=== PATIENT | male | born 1965 | race Caucasian/White ===

== ENCOUNTER 2017-10-11 16:06 | Observation (INO) | payer SELFPAY ==
[~2017-10-11 16:06] MED LIST: LORazepam 2 MG/ML MDV IVPUSH ONE; LORazepam 2 MG/ML MDV ONE
--- NOTE | 2017-10-11 16:23 | EDM.PDOC ---
ED HPI GENERAL MEDICAL PROBLEM - General Stated Complaint: CHEST PAIN Time Seen by Provider: 10/11/17 16:15 Source of Information: Reports: Patient History Limitations: Reports: No Limitations - History of Present Illness INITIAL COMMENTS - FREE TEXT/NARRATIVE: Pt is a 52 year old male who is here in the emergency room with complaints of chest pain for past 1 hr now. Pt claims his pain was 2-3/10. Radiates into left arm. No nausea of vomiting. No incontinence of stool or urine. No diaphoresis. 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 Pt did have MT 1 wk ago and he did have coronary Angiogram done in [place], [place] 1 wk ago. He did not have any stent placement, but was medically managed.he was discharge from the hospital in [place] and he and his girl friend are driving though the town here when this happened. Onset: Today Onset Date: 10/11/17 Onset Time: 15:00 Duration: Getting Worse Location: Reports: Chest Quality: Reports: Ache Severity: Mild Improves with: Reports: None Worsens with: Reports: None Associated Symptoms: Denies: Confusion, Chest Pain, Cough, Diaphoresis, Fever/ Chills, Headaches, Loss of Appetite, Nausea/Vomiting, Rash, Seizure, Shortness of Breath, Weakness ED ROS GENERAL - Review of Systems Review Of Systems: See Below Constitutional: Denies: Fever, Chills, Malaise, Weakness HEENT: Denies: Rhinitis, Throat Pain, Throat Swelling Respiratory: Denies: Shortness of Breath, Wheezing, Pleuritic Chest Pain, Cough , Sputum Cardiovascular: Reports: Chest Pain. Denies: Lightheadedness Endocrine: Denies: Fatigue GI/Abdominal: Denies: Abdominal Pain, Constipation, Diarrhea, Nausea, Vomiting : Denies: Dysuria, Flank Pain, Frequency, Urgency, Urinary Retention Musculoskeletal: Denies: Joint Pain, Joint Swelling Skin: Denies: Jaundice, Pruritis, Rash Neurological: Denies: Confusion, Dizziness, Headache Psychiatric: Reports: Anxiety. Denies: Agitation, Confusion, Cravings, Depression ED EXAM, GENERAL - Physical Exam Exam: See Below Exam Limited By: No Limitations General Appearance: Alert, WD/WN, No Apparent Distress, Anxious (very anxious, wants his girl friend on his side.) Eye Exam: Bilateral Eye: EOMI, PERRL Ears: Normal External Exam, Normal Canal, Hearing Grossly Normal, Normal TMs Ear Exam: Bilateral Ear: TM normal Nose: Normal Inspection, Normal Mucosa, No Blood Throat/Mouth: Normal Inspection, Normal Lips, Normal Teeth, Normal Gums, Normal Oropharynx, Normal Voice, No Airway Compromise Head: Atraumatic, Normocephalic Neck: Normal Inspection, Supple, Non-Tender, Full Range of Motion Respiratory/Chest: No Respiratory Distress, Lungs Clear, Normal Breath Sounds, No Accessory Muscle Use, Chest Non-Tender Cardiovascular: Normal Peripheral Pulses, Regular Rate, Rhythm, No Edema, No Gallop, No JVD, No Murmur, No Rub GI/Abdominal: Normal Bowel Sounds, Soft, Non-Tender, No Organomegaly, No Distention, No Abnormal Bruit, No Mass Extremities: Normal Inspection, Normal Range of Motion, Non-Tender, Normal Capillary Refill, No Pedal Edema Neurological: Alert, Oriented, CN II-XII Intact, Normal Cognition, Normal Gait, Normal Reflexes, No Motor/Sensory Deficits Psychiatric: Anxious Skin Exam: Warm, Intact EKG INTERPRETATION EKG Date: 10/11/17 Time: 16:00 Rhythm: NSR [place]: Normal P-Wave: Present QRS: Normal ST-T: Normal QT: Normal EKG Interpretation Comments: occasional PVCs Course - Vital Signs Text/Narrative:: Pt has recent cardiac history. He has had chest pain for more than and hour and rates it at 2-3/10 over the precardium. He is very anxious. he did get a EKG and his EKG is in NSR with normal rate. At this point he did receive 1 mg of Ativan IV. Which did help with his anxiety. His rate heart rate settled down into 70s and his blood pressure did improve to 130/80mmhg. His Chest xray appear normal other than elevated right hemidiaphragm. His CBC, CMP, PT and PTT are normal. His troponin is negative. Pt reassured, he has no chest discomfort and feels beter now. My only concern is that recent history of MT. I did get record from [facility] , [place]. His troponin was o.o7 and did have angiogram without stenting. He is on medical management. Plan is to admit patient for observation. Place him on cardiac monitoring.Will continue his medication and repeat second set of troponins in 8 hrs around 9 PM. If his second set of troponin is negative will plan of discharge. - Orders/Labs/Meds Orders: Active Orders 24 hr Category Date Time Status EKG Documentation Completion [RC] ASDIRECTED Care 10/11/17 16:17 Active Chest 1V Frontal [CR] Stat Exams 10/11/17 16:17 Taken Labs: Laboratory Tests 10/11/17 10/11/17 10/11/17 Range/Units 16:00 16:00 16:05 WBC 13.3 H (4.0-11.0) K/uL RBC 4.80 (4.50-6.50) M/uL Hgb 14.5 (13.0-18.0) g/dL Hct 41.7 (40.0-54.0) % MCV 87 (76-96) fL MCH 30.2 (27.0-32.0) pg MCHC 34.8 (31.0-35.0) g/dL RDW 13.8 (11.0-16.0) % Plt Count 278 (150-400) K/uL MPV 9.4 (6.0-10.0) fL Neut % (Auto) 47.3 (45.0-70.0) % Lymph % (Auto) 43.3 H (20.0-40.0) % [place] % (Auto) 8.1 (3.0-10.0) % Eos % (Auto) 1.1 (1.0-5.0) % Baso % (Auto) 0.2 (0.0-0.5) % Neut # (Auto) 6.30 (2.00-7.50) K/uL Lymph # (Auto) 5.75 H (1.50-4.00) K/uL [place] # (Auto) 1.07 H (0.20-0.80) K/uL Eos # (Auto) 0.14 (0.04-0.40) K/uL Baso # (Auto) 0.03 (0.02-0.10) K/uL PT 9.5 (9.0-11.5) sec INR 1.0 (1.0-3.5) APTT 24.7 L (27.0-35.0) SECONDS Sodium 142 (136-145) mmol/L Potassium 3.3 L (3.5-5.1) mmol/L Chloride 103 (98-107) mmol/L Carbon Dioxide 26.3 (21.0-32.0) mmol/L Anion Gap 16.0 H (5.0-15.0) mmol/L BUN 15 (8-26) mg/dL Creatinine 1.16 (0.70-1.30) mg/dL Est Cr Clr Drug Dosing TNP Estimated GFR (MDRD) > 60 (>60) MLS/MIN BUN/Creatinine Ratio 12.9 (6-25) Glucose 112 H (74-100) mg/dL Calcium 9.0 (8.5-10.1) mg/dL Total Bilirubin 0.2 (0.0-1.0) mg/dL AST 57 H (15-37) U/L ALT 119 H (12-78) U/L Alkaline Phosphatase 98 (46-116) U/L Troponin I < 0.017 (0.000-0.060) ng/mL Total Protein 7.9 (6.4-8.2) g/dL Albumin 4.1 (3.4-5.0) g/dL Globulin 3.8 (2.2-4.2) g/dL Albumin/Globulin Ratio 1.1 (0.8-2.0) Departure - Departure Time of Disposition: 18:30 Disposition: Refer to Observation Condition: Fair Clinical Impression: Chest pain - Discharge Information - Problem List & Annotations (1) Chest pain SNOMED Code(s): 96120566 Code(s): R07.9 - CHEST PAIN, UNSPECIFIED Status: Acute Current Visit: Yes - Problem List Review Problem List Initiated/Reviewed/Updated: Yes - My Orders Last 24 Hours: My Active Orders 10/11/17 16:17 EKG Documentation Completion [RC] ASDIRECTED Chest 1V Frontal [CR] Stat - Assessment/Plan Admission H&P: Please use this note as an admission H&P Last 24 Hours: My Active Orders 10/11/17 16:17 EKG Documentation Completion [RC] ASDIRECTED Chest 1V Frontal [CR] Stat Assessment:: Chest Pain Plan: Pt has recent cardiac history. He has had chest pain for more than and hour and rates it at 2-3/10 over the precardium. He is very anxious. he did get a EKG and his EKG is in NSR with normal rate. At this point he did receive 1 mg of Ativan IV. Which did help with his anxiety. His rate heart rate settled down into 70s and his blood pressure did improve to 130/80mmhg. His Chest xray appear normal other than elevated right hemidiaphragm. His CBC, CMP, PT and PTT are normal. His troponin is negative. Pt reassured, he has no chest discomfort and feels beter now. My only concern is that recent history of MT. I did get record from [facility] , [place]. His troponin was o.o7 and did have angiogram without stenting. He is on medical management. Plan is to admit patient for observation. Place him on cardiac monitoring.Will continue his medication and repeat second set of troponins in 8 hrs around 9 PM. If his second set of troponin is negative will plan of discharge.
[2017-10-11] MEDS ORDERED: Nitroglycerin 0.4 MG Tab.SL SL PRN (17:34)
[2017-10-11] MEDS ORDERED: Omeprazole 20 MG Cap.CR PO SCH (17:45)
[2017-10-11] MEDS ORDERED: atorvaSTATin 40 MG Tab PO SCH (20:00)
--- NOTE | 2017-10-11 21:34 | PCM.DCSUM1 ---
Discharge Summary - Hospital Course Free Text/Narrative:: Pt presented to emergency room today afternoon with chest pain which he rated at 2-3/10. His chest pain did improve with Ativan 1mg IV. Pt was very anxious. His first set of troponin was negative. An his vitals were stable. He recently had MN on 09/28/17 and was admitted at [place], [place]. Hence patient as admitted for repeat troponin considering his history of chest pain. Pt was placed on monitor and O2 at 2 litres. He has remained asymptomatic all through the ER monitoring. His second set of cardiac enzymes are negative. Pt does not have any more chest pain. Pt does appear to have anxiety and fear of MN reoccurring. he does say he feels anxious on and off since his MN. Hence i have reassured patient, that his cardiac workup today was normal. 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 Also I have advised patient to stay on his present medication regime. Establish Primary care where ever he is living and also make yearly check up through [facility]. Pt is stable and has been discharge today. Brief History: Presented to emergency room with chest pain. KIndly see H&P - Discharge Data Discharge Date: 10/11/17 Discharge Disposition: Home, Self-Care 01 Condition: Good - Discharge Diagnosis/Problem(s) (1) Chest pain SNOMED Code(s): 89253012 ICD Code: R07.9 - CHEST PAIN, UNSPECIFIED Status: Acute Current Visit: Yes - Patient Instructions Diet: Heart Healthy Diet Fluid Restriction: 1500 mL Activity: As Tolerated Driving: May Drive Today Showering/Bathing: May Shower - Discharge Plan Home Medications: Home Meds Amitriptyline [Elavil] 2.5 mg PO DAILY 10/11/17 [History] Aspirin [Ecotrin] 325 mg PO DAILY 10/11/17 [History] Clopidogrel [Plavix] 75 mg PO DAILY 10/11/17 [History] Nitroglycerin [Nitrostat] 0.4 mg SL ASDIRECTED PRN 10/11/17 [History] amLODIPine [Norvasc] 2.5 mg PO DAILY 10/11/17 [History] atorvaSTATin Calcium [Atorvastatin Calcium] 40 mg PO BEDTIME 10/11/17 [History] Patient Handouts: Nonspecific Chest Pain Forms: ED Department Discharge Referrals: PCP,None [Primary Care Provider] - - Discharge Summary/Plan Comment DC Time >30 min.: Yes Discharge Summary/Plan Comment: I have advised patient to stay on his present medication regime. Establish Primary care where ever he is living and also make yearly check up through [employer]. Started lexapro 10mg daily for pos MN anxiety. - General Info Functional Status: Reports: Pain Controlled, Tolerating Diet, Ambulating, Urinating - Review of Systems General: Denies: Fever, Weakness HEENT: Denies: Headaches, Sinus Congestion, Sore Throat Pulmonary: Denies: Shortness of Breath, Pleuritic Chest Pain, Cough, Sputum, Hemoptysis Cardiovascular: Denies: Chest Pain, Lightheadedness Gastrointestinal: Denies: Abdominal Pain, Nausea, Vomiting Genitourinary: Denies: Urgency, Flank Pain Musculoskeletal: Denies: Joint Pain, Joint Swelling Skin: Denies: Pruritis, Rash Neurological: Denies: Confusion, Dizziness, Headache Psychiatric: Reports: Anxiety - Patient Data Vitals - Most Recent: Last Vital Signs Temp 98.7 F 10/11/17 19:00 Pulse 63 10/11/17 19:00 Resp 16 10/11/17 19:00 BP 109/73 10/11/17 19:00 Pulse Ox 98 10/11/17 19:00 Weight - Most Recent: 118.388 kg I&O - Last 24 hours: Intake & Output 10/11/17 10/11/17 10/11/17 06:59 14:59 22:59 Intake Total 800 Balance 800 Lab Results - Last 24 hrs: Laboratory Results - last 24 hr 10/11/17 Range/Units 20:45 Troponin I < 0.017 (0.000-0.060) ng/mL Med Orders - Current: Current Medications Amitriptyline HCl (Elavil) 2.5 mg PO DAILY [facility] Amlodipine Besylate (Norvasc) 2.5 mg PO DAILY [facility] Aspirin (Ecotrin) 325 mg PO DAILY [facility] Atorvastatin Calcium (Lipitor) 40 mg PO BEDTIME [facility] Last Admin: 10/11/17 20:31 Dose: 40 mg Clopidogrel Bisulfate (Plavix) 75 mg PO DAILY [facility] Nitroglycerin (Nitrostat) 0.4 mg SL ASDIRECTED PRN PRN Reason: Pain Omeprazole (Omeprazole) 20 mg PO DAILY [facility] Last Admin: 10/11/17 17:47 Dose: 20 mg - Exam General: Reports: Alert, Oriented HEENT: Reports: Pupils Equal, Pupils Reactive, EOMI, Mucous Membr. Moist/[place] Neck: Reports: Supple Lungs: Reports: Clear to Auscultation, Normal Respiratory Effort Cardiovascular: Reports: Regular Rate, Regular Rhythm GI/Abdominal Exam: Normal Bowel Sounds, Soft, Non-Tender, No Organomegaly, No Distention, No Abnormal Bruit, No Mass, Pelvis Stable Skin: Reports: Warm, Intact *Q Meaningful Use (DIS) - VTE *Q VTE Criteria *Q: - Stroke *Q Stroke Criteria *Q: - AMI *Q AMI Criteria *Q:
--- NOTE | 2017-10-12 03:25 | CR ---
DATE OF SERVICE: 10/11/2017 CLINICAL DATA: Chest pain AP PORTABLE CHEST No priors. The patient has taken a poor inspiration. The heart is mildly enlarged. There are atelectatic changes in the left lung base with eventration of the left hemidiaphragm. There are minimal atelectatic changes in the right lung base. There is blunting of the left costophrenic angle consistent with a small left pleural effusion or pleural scar. No other significant findings. [id number] MTDD
[2017-10-12] MEDS ORDERED: Aspirin 325 MG Tab.EC PO SCH (08:00)
[2017-10-12] MEDS ORDERED: Amitriptyline 10 MG Tab PO SCH (08:00)
[2017-10-12] MEDS ORDERED: Clopidogrel 75 MG Tab PO SCH (08:00)
[2017-10-12] MEDS ORDERED: amLODIPine 2.5 MG Tab PO SCH (08:00)
== END 2017-10-11 21:56 | disposition home or self-care (01) ==
LOC: LB.ED 16:06 → LB.MS 17:00
PROVIDERS: ADMIT Family Medicine; ATTEND Family Medicine
DX: R07.9 Chest pain, unspecified (principal); F41.9 Anxiety disorder, unspecified; Z79.82 Long term (current) use of aspirin; Z79.899 Other long term (current) drug therapy; Z88.0 Allergy status to penicillin; Z88.8 Allergy status to other drugs, medicaments and biological substances
CPT/HCPCS: 36415; 71010; 80053; 84484; 85025; 85610; 85730; 93005; 99285; A9270; G0378; J2060; 99236